=== PATIENT | female | born 1960 | race Caucasian/White ===

== ENCOUNTER 2018-05-12 15:16 | Emergency (ER) | payer BC ==
[2018-05-12 16:30] VITALS: BP 103/59
--- NOTE | 2018-05-12 16:44 | UC ---
UC General HPI - HPI Summary HPI Summary: PT C/O FREQUENT URINATION WITH URGENCY X 1 WEEK. NO BURNING. DOES HAVE AN ACHE IN R LOW BACK. NO ABDOMINAL PAIN OR FEVER. DENIES PYELONEPHRITIS BUT HAS HAD UTIS' - History of Current Complaint Chief Complaint: UCGU Stated Complaint: URINARY COMPLAINT Time Seen by Provider: 05/12/18 16:30 Hx Obtained From: Patient Hx Last Menstrual Period: UTERINE ABLATION, 2006 Pain Intensity: 7 Aggravating: NOTHING Associated Signs & Symptoms: Negative: Abdominal Pain, Fever - Allergy/Home Medications Allergies/Adverse Reactions: Allergies Allergy/AdvReac Type Severity Reaction Status Date / Time No Known Allergies Allergy Verified 04/10/15 07:45 PMH/Surg Hx/FS Hx/Imm Hx - Additional Past Medical History Additional PMH: CHRONIC BACK PAIN, PERIPHERAL EDEMA - Surgical History Surgical History: Yes Surgery Procedure, Year, and Place: SPINAL FUSION-2012, [facility]. UTERINE ABLATION- [facility] 2009. STIMULATOR IMPLANT-2013, [facility] - Social History Alcohol Use: Occasionally Substance Use Type: None Smoking Status (MU): Light Every Day Tobacco Smoker Type: Cigarettes Amount Used/How Often: 1/2 PPD Have You Smoked in the Last Year: Yes Household Exposure Type: Cigarettes - Immunization History Most Recent Tetanus Shot: CAN NOT RECALL LAST TIME OVER 5 YEARS AT LEAST Vaccination Up to Date: Yes Review of Systems All Other Systems Reviewed And Are Negative: Yes Constitutional: Positive: Chills. Negative: Fever Skin: Positive: Negative Eyes: Positive: Negative ENT: Positive: Negative Respiratory: Positive: Negative Cardiovascular: Positive: Negative Gastrointestinal: Negative: Abdominal Pain Genitourinary: Positive: Frequency, Urgency. Negative: Dysuria Motor: Positive: Negative Neurovascular: Positive: Negative Musculoskeletal: Positive: Other: - R LOW BACK ACHES Neurological: Negative: Weakness, Paresthesia, Numbness Psychological: Positive: Negative Is Patient Immunocompromised?: No Physical Exam Triage Information Reviewed: Yes Appearance: Well-Appearing Vital Signs: Initial Vital Signs Temp 98.3 F 05/12/18 16:26 Pulse 69 05/12/18 16:26 Resp 14 05/12/18 16:26 BP 103/59 05/12/18 16:26 Pulse Ox 98 05/12/18 16:26 Vital Signs Reviewed: Yes Eyes: Positive: Conjunctiva Clear ENT: Positive: Pharynx normal, TMs normal. Negative: Nasal congestion, Nasal drainage Neck: Positive: Supple, Nontender, No Lymphadenopathy Respiratory: Positive: Lungs clear, Normal breath sounds Cardiovascular: Positive: RRR, No Murmur Abdomen Description: Positive: Nontender, No Organomegaly, Soft. Negative: CVA Tenderness (R), CVA Tenderness (L), Distended, Guarding Bowel Sounds: Positive: Present Musculoskeletal: Positive: Other: - SPINE IN NON TENDER. GROSS S/V/M FUNCTION INTACT X 4 . STEADY GAIT. Neurological: Positive: Alert Psychological: Positive: Age Appropriate Behavior Skin Exam: Normal Skin: Negative: Rashes Diagnostics - Laboratory Diagnostic Studies Completed/Ordered: u/a=trace blood and leukocytes with culture pending. Course/Dx - Course Course Of Treatment: non toxic. no acute abdomen. no concern for back pathology. no hx dm and no glucose in urine. will tx for presumptive uti blood and leukocytes in urine and close f/u for recheck. pt agrees to go to ER for any worsening. - Diagnoses Provider Diagnosis: Urinary frequency, Urinary urgency Discharge - Sign-Out/Discharge Documenting (check all that apply): Patient Departure All imaging exams completed and their final reports reviewed: No Studies - Discharge Plan Condition: Stable Disposition: HOME Prescriptions: Cephalexin CAP* [Keflex CAP*] 500 mg PO BID 7 Days #14 cap Patient Education Materials: Urinary Urgency and Frequency (DC) Referrals: Jose Crane MD [Primary Care Provider] - 5 Days Additional Instructions: GO TO ER FOR ANY WORSENING - Billing Disposition and Condition Condition: STABLE Disposition: Home
== END 2018-05-12 17:17 | disposition home or self-care (01) ==
LOC: UCCORT 15:16
DX: R35.0 Frequency of micturition (principal); R39.15 Urgency of urination; F17.210 Nicotine dependence, cigarettes, uncomplicated
CPT/HCPCS: 81003; 87086; 99212; G0463

== ENCOUNTER 2018-06-07 06:53 | Day surgery (SDC) | payer BC ==
[~2018-06-07 06:53] MED LIST: Buffered Lidocaine 0.9% SYRIN* 5 ML/SYR SYRINGE INTRADERM ONE; Dexamethasone IV* 4 MG/ML 1 ML (4 MG) IV SLOW PU ONE; Famotidine IV* 10 MG/ML 2 ML (20 mg) IV ONE; Lactated Ringers 1000 ML Bag* 1,000 ML IV SCH
[2018-06-07] MEDS ORDERED: ceFAZolin 2 GM PREMIX in ORs 2 GM/50 ML BAG IVPB ONE (07:26)
[2018-06-07] MEDS ORDERED: Dexamethasone IV* 4 MG/ML 1 ML (4 MG) ONE (07:26)
[2018-06-07] MEDS ORDERED: Midazolam* 1 MG/ML 2 ML VIAL (2 MG) ONE (08:11)
[2018-06-07] MEDS ORDERED: fentaNYL* 50 MCG/ML 2 ML VIAL (100 MCG VIAL) ONE (08:11)
[2018-06-07] MEDS ORDERED: Lidocaine 2% PF * 5 ML VIAL ONE (08:12)
[2018-06-07] MEDS ORDERED: Propofol* 10 MG/ML 20 ML BTL ONE (08:12)
[2018-06-07] MEDS ORDERED: ROPIVACAINE 5 MG/ML 30 ML BTL (0.5%) ONE ×2 (08:14→08:16)
[2018-06-07] MEDS ORDERED: Lidocaine 1%* 5 ML VIAL ONE (08:14)
[2018-06-07] MEDS ORDERED: Ondansetron INJ* 2 MG/ML VIAL ONE (09:43)
[2018-06-07] MEDS ORDERED: DiMENhydriNATE IV* 50 MG/ML VIAL IV PUSH PRN (09:51)
[2018-06-07] MEDS ORDERED: HYDROmorphone INJ1* 1 MG/ML SYRINGE IV PRN (09:51)
[2018-06-07] MEDS ORDERED: Naloxone* 0.4 MG/ML 1 ML VIAL IV PRN (09:51)
[2018-06-07] MEDS ORDERED: fentaNYL* 50 MCG/ML 2 ML VIAL (100 MCG VIAL) IV PRN (09:51)
[2018-06-07 10:28] VITALS: BP 115/70
[2018-06-07] MEDS ORDERED: EPHEDrine (Pressors)* 50 MG/ML VIAL ONE (10:28)
--- NOTE | 2018-06-08 07:06 | OP ---
DATE OF OPERATION: 06/07/18 - [facility] DATE OF : 60 SURGEON: Estrella Blake MD CLINICAL DATA SPECIALIST: ABHISHEK Garcia. An technical assistant was needed for the entirety of the case to help with positioning, retraction, and was utilized throughout all portions of the case. ANESTHESIOLOGIST: Dr. Juarez. ANESTHESIA: General interscalene block. PRE-OP DIAGNOSES: Calcific tendinitis, possible partial tear of the rotator cuff with bicipital tendinitis and nerve root recurrent impingement. POST-OP DIAGNOSES: Partial thickness tear of the rotator cuff with bicipital tendinitis and tendinosis and recurrent impingement. OPERATIVE PROCEDURES: Left shoulder arthroscopy with: 1. Extensive glenohumeral debridement. 2. Revision and subacromial decompression. 3. Rotator cuff repair using Regeneten patch. 4. Open biceps tenodesis. COMPLICATIONS: None. ESTIMATED BLOOD LOSS: Minimal. IMPLANTS USED: One Regeneten patch and one Q-Fix anchor 2.8 mm. INDICATIONS: Ketty Pina is a 57-year-old female who has a history of a previous rotator cuff repair by Dr. Stewart in the past, which she initially did okay with, but has had persistent pain and recurrent discomfort. She has elected to proceed with surgical treatment. Risks and benefits for surgery were discussed at length including, but not limited to, bleeding, infection, damage to nerves, vessels, surrounding structures, wound nonhealing, persistent pain, need for further surgery, scarring, stiffness, incomplete relief of symptoms, and risks of anesthesia. DESCRIPTION OF PROCEDURE: The patient was greeted in the preoperative area by the attending surgeon. The correct extremity was marked, consent was confirmed. The patient underwent interscalene nerve block by the anesthesiologist after which she was brought back to the operating suite. She was placed in the supine position on the operating room table. She underwent general anesthesia with endotracheal intubation, after which she was placed in the right lateral decubitus position and all bony prominences were padded. The left shoulder was then prepped and draped in the usual sterile fashion, beginning with chlorhexidine soap, scrub, and alcohol wipe, and a final prep with ChloraPrep. After appropriate surgical pause indicating site, side, procedure, and administration of antibiotics, the standard posterolateral portal was made sharply with an 11-blade. The scope was introduced into the joint. The joint was examined. There were some mild condylar changes with grade 1 changes as well as grade 2 changes. The anterior portal was made in an outside-in fashion. There was significant synovitis present. The shaver was used to debride back the anterior, posterior, and superior labrum and to do a small chondroplasty. The inferior recess was intact. The biceps anchor had mild fraying and the biceps had significant synovitis and damage to the kang. The subscap was intact. The undersurface of the rotator cuff was intact, but had partial thickness tearing. The biceps was then tenotomized for later tenodesis. Once the debridement was completed, attention was directed to the subacromial space. With the scope in the subacromial space, a lateral portal was made in an outside -in fashion. A shaver was used to debride back the abundant bursa that was present. The previous suture from her rotator cuff repair was also identified as well. At this point, the cuff was generally probed and was found to be intact on the bursal side. Decision was made to first address the acromion spur that was remaining. There had been a fairly aggressive acromioplasty done in the past. There was a small spur more medially where the AC joint was. This was then gently debrided using a 4-0 oval kinsey. Attention was directed to the rotator cuff. Decision was made to not take down her previous repair and instead treat it with a Regeneten patch for revision and this may help calm down the patient's pain. The medium size Regeneten patch was then brought to the field. There was a separate stab incision and cannula was placed and the graft was secured medially with tendon teto. Laterally, this was secured. The graft was secured with bone teto. The shoulder was taken through gentle range of motion and grafts were well placed and secured. Final images were obtained. The wounds were copiously irrigated and attention was directed to the biceps. The bed was airplaned to the left side. The anterior aspect of the shoulder was prepped again using ChloraPrep. A 15 blade was used to make the incision in line with the biceps. Soft tissues were carefully dissected to expose the pec fascia. The remainder of dissection was done bluntly. The pec was elevated to expose the bicipital groove. The biceps was brought through the wound, the groove was then prepared in the usual fashion using electrocautery device, red ball rasp, and osteotome. The Q-Fix guide was then drilled unicortically. The Q-Fix was deployed with excellent purchase. The sutures were then passed through the tendon, 1 cm proximal to the musculotendinous junction. The sutures were then passed through the Flash-Altaf type configuration. The excess stump was excised. The biceps shuttled back to the wound and secured. The wounds were copiously irrigated with sterile saline. The anterior aspect of the wound was closed with 2-0 Vicryl and 3- 0 Monocryl and the portals were closed with 3-0 nylon. Sterile dressings were applied and Cryo/Cuff and UltraSling were applied. She was awoken from anesthesia and transferred to the PACU in stable condition. POSTOPERATIVE PLAN: She will be nonweightbearing. She will be in a sling for approximately 4 weeks. She will be discharged on pain medication and antibiotics. DVT prophylaxis considered, but deferred due to no previous personal or family history. She will start therapy in the next 10 days or so. I will see her in the office in 10 to 14 days. [id number]/[facility] #: [id number] ANNABEL
== END 2018-06-07 10:48 | disposition home or self-care (01) ==
LOC: OREAST 06:53
PROVIDERS: ATTEND Orthopaedic Surgery
DX: M75.112 Incomplete rotator cuff tear or rupture of left shoulder, not specified as traumatic (principal); M75.22 Bicipital tendinitis, left shoulder; M75.42 Impingement syndrome of left shoulder; M75.32 Calcific tendinitis of left shoulder; G89.18 Other acute postprocedural pain; I34.1 Nonrheumatic mitral (valve) prolapse; J45.909 Unspecified asthma, uncomplicated; F17.210 Nicotine dependence, cigarettes, uncomplicated
CPT/HCPCS: 88304; C1713; C1776; J0690; J1100; J2250; J2405; J2704; J2795; J3010